=== PATIENT | male | born 1980 | race Caucasian/White ===

== ENCOUNTER → 2022-03-30 16:22 | Outpatient (BNVA) | payer BC, MEDICAID, SELFPAY | PROVIDERS: Referring Provider Family Medicine; Visit Provider Internal Medicine | DX: E10.9 Type 1 diabetes mellitus without complications (principal); E78.2 Mixed hyperlipidemia | CPT/HCPCS: 36415; 80048; 80053; 80061; 83036; 84681; 86337; 86341 ==

== ENCOUNTER 2023-03-21 08:33 | Outpatient (CLI) | payer BC, MEDICAID, SELFPAY ==
[2023-03-21 09:15] LABS: Alanine Aminotransferase 9 U/L (0-41); Albumin Level 4.4 g/dL (3.5-5.2); Alkaline Phosphatase 79 U/L (40-130); Anion Gap 16.7 (5-19); Aspartate Amino Transferase 12 U/L (0-40); Blood Urea Nitrogen 12 mg/dL (6-20); Calcium 9.3 mg/dL (8.5-10.5); Carbon Dioxide 26 mmol/L (22-29); Chloride 102 mmol/L (98-107); Chol HDL Ratio 2.28 mg/dL (1.0-5.00); Cholesterol 173 mg/dL (0-200); Globulin 2.8 g/dL (1.3-4.6); Glomerular Filtration Rate 81.2 mL/min (90-130); Glucose 131 mg/dL (65-115); HDL Cholesterol 76 mg/dL (60-100); LDL Cholesterol Calculated 81 mg/dL (50-129); LDL HDL Ratio 1.07 RATIO (0.00-3.22); Osmolality Calculated 294 mOsm/kg (285-295); Potassium 3.7 mmol/L (3.5-5.1); Sodium 141 mmol/L (136-145); Total Bilirubin 1.2 mg/dL (0.15-1.2); Total Protein 7.2 g/dL (6.6-8.7); Triglycerides 79 mg/dL (0-150)
[2023-03-21 09:30] LABS: Creatinine Urine, Random 278 mg/dL (39-259); Microalbum Creatinine Ratio Ur 4 mg/dL (0-20); Microalbumin Random Urine 1 ug/dL (0-20)
[2023-03-21 09:31] LABS: Estmated Average Glucose 154
== END 2023-03-21 08:34 | disposition home or self-care (01) ==
LOC: LAB 08:35
PROVIDERS: PCP Family Medicine; Visit Provider Internal Medicine
DX: E10.9 Type 1 diabetes mellitus without complications (principal); E78.2 Mixed hyperlipidemia
CPT/HCPCS: 36415; 80053; 80061; 82044; 83036

== ENCOUNTER 2023-09-11 11:06 | Outpatient (CLI) | payer BC, MEDICAID, SELFPAY ==
[2023-09-11 12:02] LABS: Estmated Average Glucose 154
[2023-09-11 12:07] LABS: Alanine Aminotransferase 12 U/L (0-41); Albumin Level 4.6 g/dL (3.5-5.2); Alkaline Phosphatase 80 U/L (40-130); Anion Gap 18.1 (5-19); Aspartate Amino Transferase 15 U/L (0-40); Blood Urea Nitrogen 12 mg/dL (6-20); Calcium 9.6 mg/dL (8.5-10.5); Carbon Dioxide 25 mmol/L (22-29); Chloride 99 mmol/L (98-107); Chol HDL Ratio 3.17 mg/dL (1.0-5.00); Cholesterol 187 mg/dL (0-200); Glomerular Filtration Rate 65.8 mL/min (90-130); Glucose 170 mg/dL (65-115); HDL Cholesterol 59 mg/dL (60-100); LDL Cholesterol Calculated 114 mg/dL (50-129); LDL HDL Ratio 1.93 RATIO (0.00-3.22); Osmolality Calculated 290 mOsm/kg (285-295); Potassium 4.1 mmol/L (3.5-5.1); Sodium 138 mmol/L (136-145); Total Bilirubin 1.2 mg/dL (0.15-1.2); Total Protein 7.6 g/dL (6.6-8.7); Triglycerides 70 mg/dL (0-150)
[2023-09-11 12:10] LABS: Creatinine Urine, Random 306 mg/dL (39-259); Microalbum Creatinine Ratio Ur 16 mg/dL (0-20); Microalbumin Random Urine 5 ug/dL (0-20)
== END 2023-09-11 11:07 | disposition home or self-care (01) ==
LOC: LAB 11:08
PROVIDERS: PCP Family Medicine; Visit Provider Internal Medicine
DX: E10.9 Type 1 diabetes mellitus without complications (principal); E78.2 Mixed hyperlipidemia
CPT/HCPCS: 36415; 80053; 80061; 82044; 83036